=== PATIENT | female | born 1950 | race Caucasian/White ===

== ENCOUNTER → 2022-02-13 12:59 | Outpatient (BNVA) | payer MEDICARE, SELFPAY | PROVIDERS: Visit Provider Family Medicine | DX: G89.29 Other chronic pain; M25.532 Pain in left wrist | CPT/HCPCS: 73110 ==

== ENCOUNTER 2022-02-15 07:52 | Outpatient (CLI) | payer MEDICARE, SELFPAY ==
--- NOTE | 2022-02-15 08:12 | XR_ITS ---
WS: [id number] Cervical spine, 5 views including both obliques, 02/15/2022 Clinical Data: CHRONIC NECK PAIN Comparison: None. Findings: No compression fractures are seen. The disc heights are normal. There is no prevertebral so ft tissue swelling. The odontoid is unremarkable. The soft tissues of the neck and the lung apices ar e normal. The oblique films show no foraminal stenosis. XR/XR cervical spine 4-5V [id number] Impression: 1. Negative cervical spine. 2. Negative oblique films.
== END 2022-02-15 07:53 | disposition home or self-care (01) ==
LOC: RAD 07:54
PROVIDERS: Visit Provider Family Medicine
DX: M54.2 Cervicalgia (principal); G89.29 Other chronic pain
CPT/HCPCS: 72050

== ENCOUNTER 2022-09-04 06:21 | Outpatient (CLI) | payer MEDICARE, SELFPAY ==
--- NOTE | 2022-09-04 | USR_ITS ---
PROCEDURE INFORMATION: Exam: US Duplex Left Upper Extremity Arteries Exam date and time: 09/04/2022 7:23 AM Age: 72 years old Clinical indication: Pain; Arm, lower; Left; Additional info: Claudication TECHNIQUE: Imaging protocol: Left Real-time ultrasound scan of the arteries of the left upper extremity with 2-D perez scale, color Doppler flow and spectral waveform analysis. COMPARISON: CR XR wrist LT min 3V* [id number] 02/13/2022 1:12 PM FINDINGS: Left subclavian artery: No visible plaque. Normal waveform. Peak velocity 85 cm/s. Left axillary artery: No visible plaque. Normal waveform. Peak velocity 89 cm/s. Left brachial artery: No visible plaque. Normal waveform. Peak velocity 85 cm/s. Left radial artery: Mildly abnormal monophasic waveform with sharp systolic upstroke and forward flow through diastole. Peak velocity 70 cm/s. No visible plaque. Left ulnar artery: Mildly abnormal monophasic waveform with sharp systolic upstroke and forward flow through diastole. Peak velocity 59 cm/s. No visible plaque. Soft tissues: Unremarkable. US/[place] [id number] IMPRESSION: No sign of hemodynamically significant arterial stenosis in the left upper extremity.
--- NOTE | 2022-09-04 07:03 | USCV_ITS ---
Madison Bueno Age: 72 Gender: F : 1950 Exam Date: 09/04/2022 07:14 Ordering Phys: Garth Levy MD Technologist: Exam Location: [facility] [place] Indication: lt arm pain PROCEDURES: Venous duplex imaging was performed in bilateral upper extremities. The following venous structures were evaluated: internal jugular vein, subclavian vein, axillary vein, and brachial veins. In addition, the basilic vein, cephalic vein, radial vein, and ulnar vein. FINDINGS: No evidence of deep vein thrombosis or superficial thrombophlebitis in the left upper extremity. CONCLUSIONS No left upper extremity DVT. Dr. Carolyn Kenny DO (Electronically Signed) Final Date: 04 Sep 2022 08:43 S
== END 2022-09-04 06:22 | disposition home or self-care (01) ==
PROVIDERS: Visit Provider Family Medicine
DX: M79.602 Pain in left arm (principal); I73.9 Peripheral vascular disease, unspecified; R22.33 Localized swelling, mass and lump, upper limb, bilateral; M79.89 Other specified soft tissue disorders
CPT/HCPCS: 93931; 93971

== ENCOUNTER 2024-02-28 14:02 | Outpatient (CLI) | payer MEDICARE, SELFPAY ==
--- NOTE | 2024-02-28 14:07 | MR_ITS ---
WS: [id number] MRI BRAIN WITH AND WITHOUT CONTRAST HISTORY: AMNESIA COMPARISON: None available. TECHNIQUE: Multiplanar imaging performed through the brain with MultiHance 19 ml's IV. Limited postco ntrast imaging as patient became nauseous after the injection. No acute infarcts are seen. Lewis-white matter differentiation is well preserved. Mild volume loss and atrophy. There are a few scattered T2 and FLAIR signal hyperintensities throughout the white matter. No prior infarct. Mild hippocampal volume loss. No susceptibility artifacts or prior lacunar infarcts. Ventricles and extra-axial spaces are normal. Clivus and pituitary gland are normal. Visualized posterior fossa and brainstem are also normal. Postcontrast images are negative for masses or vascular malformations. Dural venous sinuses are normal. Paranasal sinuses: Well aerated with no significant disease. Mastoid air cells: Normal. Calvarium and scalp: Normal. MR/MR head wo/w con [id number] IMPRESSION: 1. No diffusion abnormality or acute infarct. 2. Mild hippocampal atrophy. 3. There are few scattered T2 and FLAIR signal hyperintensities are likely fro m mild small vessel ischemic disease. No prior large infarct. 4. Limited postcontrast imaging but no enhancement noted on the coronal sequen ce.
--- NOTE | 2024-02-28 14:07 | MR_ITS ---
WS: [id number] MRA ANGIOGRAPHY [place] HISTORY: AMNESIA COMPARISON: None available. TECHNIQUE: 3-D MR angiography is performed of the [place]. All images are reviewed including source images. Distal RIGHT vertebral artery may be occluded as it is not visualized. Normal distal LEFT vertebral a rtery. Normal basilar artery. Persistent circulation of the LEFT posterior cerebral artery. Abs ent LEFT P1 segment. RIGHT posterior communicating artery and the posterior cerebral artery are ac l. Intracranial portion of the internal carotid arteries are normal course and caliber. No significant a therosclerosis, stenosis or aneurysm identified. Middle and anterior cerebral arteries are both paten t. Mild luminal narrowing and irregularity involving the LEFT M1 segment. No occlusions or aneurysms. Anterior communicating artery is also normal. MR/MR angio head wo con [id number] IMPRESSION: 1. Absent distal RIGHT vertebral artery. Normal LEFT vertebral artery. 2. Mild narrowing of the distal LEFT M1 segment. No complete occlusion. 3. No cerebral aneurysms.
--- NOTE | 2024-02-28 14:09 | MR_ITS ---
WS: [id number] MR VENOGRAPHY HEAD 3-D noncontrast imaging performed through the cerebral veins. All imaging is reviewed. HISTORY: AMNESIA COMPARISON: None available. Excellent demonstration of the dural venous sinuses and cerebral veins. There are no filling defects to suggest acute or chronic thrombus. Normal asymmetry of the transverse sinuses and sigmoid sinuses with the LEFT being smaller caliber but patent. Flow artifact in the jugular veins. Superior sagittal sinus, straight sinus and transverse sinuses are all patent with no significant thrombus. MR/[place] [id number] IMPRESSION: Normal MR venogram dural venous sinuses.
[2024-02-28] MEDS: gadobenate dimeglumine 20 mL vial 19 ML IV (15:54)
== END 2024-02-28 14:03 | disposition home or self-care (01) ==
LOC: RAD 14:05
PROVIDERS: PCP Family Medicine; Visit Provider Family Medicine
DX: R41.3 Other amnesia (principal)
CPT/HCPCS: 70544; 70553

== ENCOUNTER → 2024-05-13 14:18 | Outpatient (BNVA) | payer MEDICARE, SELFPAY | PROVIDERS: PCP Family Medicine; Referring Provider Family Medicine; Visit Provider Specialist | DX: G31.84 Mild cognitive impairment of uncertain or unknown etiology (principal); G43.711 Chronic migraine without aura, intractable, with status migrainosus; Z48.89 Encounter for other specified surgical aftercare | CPT/HCPCS: 36415; 82542; 82607; 83520; 85651; 86160; 86162; 86235; 86255; 86376; 96116; 99205 ==

== ENCOUNTER → 2024-08-11 13:57 | Outpatient (BNVA) | payer MEDICARE, SELFPAY | PROVIDERS: PCP Family Medicine; Referring Provider Family Medicine; Visit Provider Specialist | DX: G31.84 Mild cognitive impairment of uncertain or unknown etiology (principal) | CPT/HCPCS: 99214 ==

== ENCOUNTER → 2025-02-09 13:28 | Outpatient (BNVA) | payer MEDICARE, SELFPAY | PROVIDERS: PCP Family Medicine; Referring Provider Family Medicine; Visit Provider Specialist | DX: G31.84 Mild cognitive impairment of uncertain or unknown etiology (principal) | CPT/HCPCS: 99214 ==